=== PATIENT | female | born 1990 | race Caucasian/White ===

== ENCOUNTER → 2017-02-17 | Outpatient (CLI) | payer OTHER ==
[~2017-02-17] MED LIST: IBUP-103 PO; MEDR10TA PO; SPIR50TA2 PO
--- NOTE | 2017-02-17 13:56 | MAMMOGRAPHY REPORT ---
ULTRASOUND OF RIGHT BREAST: 02/17/2017 CLINICAL HISTORY: The patient reports a palpable lump in her right breast she has had since October. She notes that the lump fluctuates in size and sometimes it is difficult to feel. COMPARISON: No prior exams were available for comparison. TECHNIQUE: Real-time targeted ultrasound of the right breast was performed. FINDINGS: Real-time, high-resolution targeted ultrasound was performed of the area of the palpable lump pointed out by the patient, in the right breast at approximately 4:00, 5 cm from the nipple. Sonographicall y normal tissue is seen in this region, without evidence of a cystic or solid mass or other suspiciou s sonographic abnormality. IMPRESSION: ACR BI-RADS CATEGORY 1: NEGATIVE No suspicious sonographic abnormality at the site of the palpable right breast lump pointed out by th e patient. There is no sonographic evidence of malignancy. Recommend clinical follow-up; given that the lump is newly palpable to the patient, consider fine-needle aspiration by the pathology departme nt for further evaluation. The patient was verbally notified of the results. Irene Raza M.D. ah/:02/17/2017 10:54:01 Tissue Packer: Fatou CACERES(August)(Yris), [facility] letter sent: Normal 1/2 BI-RADS Code: ACR BI-RADS Category 1: Negative
== END | disposition home or self-care (01) ==
LOC: C.MAMM 08:37
PROVIDERS: ATTEND Physician Assistant
DX: N63 Unspecified lump in breast (principal)